=== PATIENT | male | born 2000 | race Asian ===

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

== ENCOUNTER 2018-11-15 01:56 | Emergency (ER) | payer BC ==
--- NOTE | 2018-11-15 03:05 | EDPHY ---
H & P Stated Complaint: left shoulder LAC Time Seen by Provider: 11/15/18 02:20 HPI/ROS: Chief Complaint: Left shoulder laceration HPI: 18-year-old intoxicated male jumped onto a sofa where there was a glass. The glass broke and he sustained a laceration on his left shoulder. Last tetanus was in the last 10 years. Denies other injuries. Admits to multiple alcoholic drinks tonight. Did not hit his head. No loss of consciousness. ROS: 10 systems were reviewed and were negative except those elements noted in the HPI. PMH: Denies Social History: No smoking, occasional alcohol Family History: non-contributory Physical Exam: Gen: Awake, Alert, No Distress, slurred speech, smells of alcohol HEENT: Nose: no rhinorrhea Eyes: PERRLA, EOMI Mouth: Moist mucosa Neck: Supple, no JVD Ext: Left shoulder: Patient has a 7 cm cruciate laceration to his left shoulder into the subcutaneous. There is no muscle belly involvement. No foreign bodies noted. Laceration in the lateral portion of his left shoulder. Skin: no rash Neuro: CN II-XII intact, Sensation grossly intact, Strength 5/5 in bilateral upper and lower extremities - Personal History Current Tetanus Diphtheria and Acellular Pertussis (TDAP): Yes - Medical/Surgical History Hx Asthma: No Hx Chronic Respiratory Disease: No Hx Diabetes: No Hx Cardiac Disease: No Hx Renal Disease: No Hx Cirrhosis: No Hx Alcoholism: No Hx HIV/AIDS: No Hx Splenectomy or Spleen Trauma: No - Social History Smoking Status: Never smoked Constitutional: Initial Vital Signs Temperature (C) 36.9 C 11/15/18 02:00 Heart Rate 101 H 11/15/18 02:00 Respiratory Rate 20 11/15/18 02:00 Blood Pressure 131/59 H 11/15/18 02:00 O2 Sat (%) 97 11/15/18 02:00 O2 Delivery Mode Room Air Allergies/Adverse Reactions: Penicillins Allergy (Verified 11/15/18 01:59) Home Medications: Medication Instructions Recorded NK [No Known Home Meds] 11/15/18 Medical Decision Making Procedures: Procedure: Laceration repair. Verbal consent was obtained from the patient. The 7 cm laceration on the left shoulder was anesthetized in the usual fashion. The wound was irrigated, draped and explored to its base with a gloved finger. There were no deep structures involved. No tendon injury was identified. The wound was repaired with 3, 5-0 Vicryl deep horizontal mattress sutures, 11, 4-0 Ethilon simple interrupted sutures. The wound repair was a complicated layered closure. The procedure was performed by myself. Departure - Departure Disposition: Home, Routine, Self-Care Clinical Impression: Laceration Condition: Good Instructions: Care For Your Stitches (ED), Laceration (ED) Additional Instructions: Sutures need to be removed in 10 days. You may return to the emergency department we will perform this for you. Return sooner for increasing redness, discharge from the wound, fevers, wound opening, or any other concerns. Referrals: [facility] Hartman,. [Clinic] - As per Instructions
[2018-11-15 03:16] VITALS: BP 129/78
== END 2018-11-15 03:15 | disposition home or self-care (01) ==
PROC: 0HQCXZZ Repair Left Upper Arm Skin, External Approach (ICD-10-PCS; principal; 2018-11-15)
DX: S41.012A Laceration without foreign body of left shoulder, initial encounter (principal); W25.XXXA Contact with sharp glass, initial encounter; Y93.39 Activity, other involving climbing, rappelling and jumping off; F10.920 Alcohol use, unspecified with intoxication, uncomplicated

== ENCOUNTER 2018-12-16 19:37 | Emergency (ER) | payer BC ==
--- NOTE | 2018-12-16 19:44 | EDPHY ---
HPI/HX/ROS/PE/MDM Narrative: CHIEF COMPLAINT: Face swelling HPI: This patient is a healthy 18-year-old male with a known allergy to penicillin but otherwise no known allergies to other medications, foods, or environmental stimuli. He presents today with facial swelling and generalized pruritic urticaria which began this afternoon while he was playing basketball. He initially began to feel very warm, and following the game noted that his face had become very swollen. His skin turned red and very itchy. He took a cold shower which helped to relieve symptoms somewhat, but he continues to have facial swelling and urticaria. He denies any tongue swelling or difficulty breathing. He is generally very active and has never had similar symptoms in the past. He states "I had a really normal day" and cannot identify any usual foods or environmental contacts that may have provoked his symptoms other than a new hot sauce he tried this morning at home. He denies any recent changes in medications. No headache, chest pain, shortness of breath, fever, or other associated symptoms. REVIEW OF SYSTEMS: A comprehensive 10 system review of systems is otherwise negative aside from elements mentioned in the history of present illness and medical decision making. PMH: Denies. SOCIAL HISTORY: Single. Lives in [place]. Student at [employer]. PHYSICAL EXAM: General: Generalized facial swelling (no ENT involvement). Patient is alert, in no acute distress. ENT:Eyes are normal to inspection. ENT inspection normal, no angioedema. Neck: Normal inspection. Full range of motion. Respiratory:No respiratory distress. Breath sounds normal bilaterally. Cardiovascular: Regular rate and rhythm. Strong peripheral pulses. Normal cap refill. Abdomen:The abdomen is nontender to palpation. There are no peritoneal signs. There are normal bowel sounds. Back: Normal to inspection. No tenderness to palpation. Skin: Diffuse urticaria. Warm and dry. Extremities: Normal appearance. Full range of motion. Neuro: Oriented x3. Normal motor function. Normal sensory function. ED Course: 18 y/o male presents with generalized urticaria and facial swelling. No oropharyngeal/airway involvement. Plan to administer 50mg IV Benadryl, 50mg IV Ranitidine, 125mg IV Solu-Medrol, and 1L IV NS for symptom relief. 21:45 Patient is feeling much better following medication administration. No recurrence of symptoms. Plan to discharge home in good condition with referral to stock control clerk as well as prescription for EpiPen and Prednisone. Follow up and return precautions discussed. He is comfortable with this plan. MDM: This is a young healthy male who presents with apparent 1st episode anaphylaxis. We had extensive discussion regarding possible sources of this reaction, but the patient was unable to identify any new exposures. We will discharge him with EpiPen and stock control clerk referral. At time of discharge, he is asymptomatic. - Data Points Medications Given: Discontinued Medications Diphenhydramine HCl (Benadryl Injection) 50 mg IVP EDNOW ONE Stop: 12/16/18 19:49 Last Admin: 12/16/18 19:55 Dose: 50 mg Sodium Chloride (Ns) 1,000 mls @ 0 mls/hr IV ONCE ONE; Wide Open PRN Reason: Protocol Stop: 12/16/18 19:49 Last Admin: 12/16/18 19:55 Dose: 1,000 mls Methylprednisolone Sodium Succinate (Solu-Medrol) 125 mg IVP EDNOW ONE Stop: 12/16/18 19:49 Last Admin: 12/16/18 19:55 Dose: 125 mg Ranitidine HCl (Zantac) 50 mg IVP EDNOW ONE Stop: 12/16/18 19:49 Last Admin: 12/16/18 19:55 Dose: 50 mg General Time Seen by Provider: 12/16/18 19:42 Initial Vital Signs: Initial Vital Signs Temperature (C) 36.4 C 12/16/18 19:42 Heart Rate 82 12/16/18 19:42 Respiratory Rate 18 12/16/18 19:42 Blood Pressure 123/81 H 12/16/18 19:42 O2 Sat (%) 94 12/16/18 19:42 O2 Delivery Mode Room Air Allergies/Adverse Reactions: Penicillins Allergy (Verified 12/16/18 19:43) Home Medications: Medication Instructions Recorded EPINEPHrine [Epipen 0.3 MG] 0.3 mg IM ONCE #2 syr 12/16/18 predniSONE 60 mg PO DAILY #9 tab 12/16/18 Departure - Departure Disposition: Home, Routine, Self-Care Clinical Impression: Allergic reaction Condition: Good Instructions: General Allergic Reaction (ED) Additional Instructions: Follow-up with your primary doctor within 72 hours. Use [id number] Benadryl as directed for itching. Return to the Emergency Department for shortness of breath, difficulty swallowing, difficulty breathing, worsening of rash, fever or other worsening of condition. When symptoms have completely subsided, follow up with an stock control clerk soon as possible to determine the cause of the allergic reaction. Use EpiPen in case of allergic emergency. Referrals: RADHA URBINA [Other] - As per Instructions Mary Jo Wadsworth MD [[facility] Primary Care Provider] - As per Instructions Prescriptions: EPINEPHrine [Epipen 0.3 MG] 0.3 mg IM ONCE #2 syr predniSONE 60 mg PO DAILY #9 tab Report Scribed for: Ortega Smith Report Scribed by: Mago Simmons Date of Report: 12/16/18 Time of Report: 19:58 Physician Review and Approval Statement: Portions of this note were transcribed by an ED scribe. I personally performed the history, physical exam, and medical decision making; and confirm the accuracy of the information in the transcribed note.
[2018-12-16] MEDS ORDERED: NS 1,000 ML IV ONE (19:48)
[2018-12-16] MEDS ORDERED: methylPREDNISolone SOD SUCC 125 MG/2 ML VIAL IVP ONE (19:48)
[2018-12-16] MEDS ORDERED: RANITIDINE 50 MG/2 ML VIAL IVP ONE (19:48)
[2018-12-16 22:05] VITALS: BP 124/67
== END 2018-12-16 22:04 | disposition home or self-care (01) ==
DX: T78.40XA Allergy, unspecified, initial encounter (principal); E86.9 Volume depletion, unspecified
CPT/HCPCS: 96374; J1200; J2780; J2930